=== PATIENT | male | born 1985 | race African-American/Black ===

== ENCOUNTER 2017-07-22 12:32 | Emergency (ER) | payer SELFPAY ==
[2017-07-22] MEDS: IPRATRPIUM/ALBUTEROL 0.5/2.5MG 3 ML NEBU. NEB (13:09)
== END 2017-07-22 13:51 | disposition home or self-care (01) ==
LOC: ER 12:32
DX: R04.0 Epistaxis (principal); R06.2 Wheezing; R05 Cough; J44.9 Chronic obstructive pulmonary disease, unspecified
CPT/HCPCS: 94640; 99283-25; J7620

== ENCOUNTER 2017-08-20 09:24 | Emergency (ER) | payer SELFPAY ==
[2017-08-20 10:39] LABS: INFLUENZA A PATIENT NEGATIVE (NEGATIVE); INFLUENZA B PATIENT NEGATIVE (NEGATIVE); OBC FLU VALID
== END 2017-08-20 10:57 | disposition home or self-care (01) ==
LOC: ER 09:24
DX: R50.9 Fever, unspecified (principal); R05 Cough; M79.1 Myalgia; J44.9 Chronic obstructive pulmonary disease, unspecified
CPT/HCPCS: 87804; 87804-59; 99284